=== PATIENT | male | born 1960 | race Caucasian/White ===

== ENCOUNTER 2020-02-12 05:55 | Day surgery (SDC) | payer OTHER ==
[~2020-02-12] VITALS: Ht 175.3 cm; Wt 88.5 kg
[2020-02-12] MEDS ORDERED: fentaNYL 0.05 MG/ML VIAL ONE (07:27)
[2020-02-12] MEDS ORDERED: LIDOCAINE 2% 100 MG/5 ML UJET TP ONE (07:28)
[2020-02-12] MEDS ORDERED: MIDAZOLAM 2 MG/2 ML VIAL ONE ×2 (07:28)
[2020-02-12] MEDS ORDERED: MIDAZOLAM 2 MG/2 ML VIAL IVP ONE (07:32)
[2020-02-12] MEDS ORDERED: fentaNYL 0.05 MG/ML VIAL IVP ONE (07:34)
== END 2020-02-12 08:55 | disposition home or self-care (01) ==
LOC: MDS 05:55 → MMU 05:55 → MTU 05:59 → MDS 08:55
PROVIDERS: ATTEND Internal Medicine Gastroenterology
DX: R19.7 Diarrhea, unspecified (principal); K57.30 Diverticulosis of large intestine without perforation or abscess without bleeding; E11.9 Type 2 diabetes mellitus without complications; Z79.4 Long term (current) use of insulin; Z79.82 Long term (current) use of aspirin; E66.9 Obesity, unspecified; Z68.28 Body mass index [BMI] 28.0-28.9, adult
CPT/HCPCS: 45380; 88305; J2250; J3010